=== PATIENT | male | born 1965 | race Caucasian/White ===

== ENCOUNTER 2017-02-25 17:09 | Emergency (ER) | payer OTHER ==
--- NOTE | 2017-02-25 18:02 | EDPHY ---
HPI/HX/ROS/PE/MDM Narrative: CHIEF COMPLAINT: Left inguinal pain HPI: This patient is a 51 year old male with history of chronic back pain complaining of left inguinal pain persistent over the last few months and worsening in the last two weeks. His pain originally felt like his left testicle was being "wrenched". The pain then progressed deeper, inferior to his hip bone. Whenever he moves or shifts side to side, he gets sharp pain that radiates down into his groin and to the outside of his hip. He endorses some associated back pain. 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 He is in physical therapy working with soil checker for back pain related to an L1 fractured. Over the last couple months he has tried to reduce his inguinal pain with is soil checker as well. He has taken 900mg of Ibuprofen today for symptom relief. His primary care physician recommended evaluation in the emergency department for returning or worsening pain. He denies rashes or irritation, dysuria, fever, incontinence, or other associated symptoms. REVIEW OF SYSTEMS: Aside from elements discussed in the HPI, a comprehensive 10-point review of systems was reviewed and is negative. PMH: Fractured L1. Lumbar pain. SOCIAL HISTORY: Performance pianist. . PHYSICAL EXAM: General:Patient is alert, in no acute distress. ENT:Eyes are normal to inspection. ENT inspection normal. Neck: Normal inspection. Full range of motion. Respiratory:No respiratory distress. Breath sounds normal bilaterally. Cardiovascular: Regular rate and rhythm. Strong peripheral pulses. Normal cap refill. Abdomen:The abdomen is nontender to palpation. There are no peritoneal signs. There are normal bowel sounds. Back: Normal to inspection. No tenderness to palpation. Skin: Normal color. No rash. Warm and dry. Extremities: Tenderness left inguinal canal. Normal appearance. Full range of motion. Genitourinary: Neuro: Oriented x3. Normal motor function. Normal sensory function. Portions of this note were transcribed by an ED scribe. I personally performed the history, physical exam, and medical decision making; and confirm the accuracy of the information in the transcribed note. (Ruben Bone) ED Course: Re-evaluation 10:00 p.m.. The patient and I discussed imaging study results, treatment plan including criteria for return and importance of follow-up and further evaluation. He expresses understanding and agreement (Jonn Camargo) Declines pain medication at this time. (Ruben Bone) MDM: This patient presents with severe left inguinal pain. Thankfully, his CTAP is negative for hernia, bowel obstruction, abscess, fracture or other abnormality. Given this negative study, as well as negative labs and urine, I suspect this is either hip bursitis, lumbar radiculopathy or possibly testicular pathology. I have ordered an US of his testicles and signed the patient out to Dr. Camargo. If this is negative, I think the patient is safe to go home with a medrol dose-nicola. He has spine follow-up already in place within 48 hours. ( Ruben Bone) - Data Points Imaging Results: Imaging Impressions Abdomen CT 02/25/17 18:09 Impression: 1. Old L1 compression fracture. 2. Appendectomy. 3. Mild colonic diverticulosis. 4. No acute lesion is identified. I telephoned results to Dr. Ruben Bone at 2031 hours. Testicular Ultrasound 02/25/17 20:44 Impression: Small bilateral hydroceles. I telephoned results to Dr. Jonn Camargo at 2150 hours. Testicular ultrasound reviewed by me and discussed with Dr. Garcia reveals small bilateral hydroceles but otherwise normal testes and epididymis (Jonn Camargo) Laboratory Results: Laboratory Results 02/25/17 18:00 02/25/17 18:00 02/25/17 02/25/17 02/25/17 18:45 18:00 18:00 WBC 6.48 10^3/uL 10^3/uL (3.80-9.50) RBC 5.73 10^6/uL 10^6/uL (4.40-6.38) Hgb 16.7 g/dL g/dL (13.7-17.5) Hct 47.1 % % (40.0-51.0) MCV 82.2 fL fL (81.5-99.8) MCH 29.1 pg pg (27.9-34.1) MCHC 35.5 g/dL g/dL (32.4-36.7) RDW 12.7 % % (11.5-15.2) Plt Count 276 10^3/uL 10^3/uL (150-400) MPV 9.4 fL fL (8.7-11.7) Neut % (Auto) 52.3 % % (39.3-74.2) Lymph % (Auto) 38.6 % % (15.0-45.0) [place] % (Auto) 6.8 % % (4.5-13.0) Eos % (Auto) 1.7 % % (0.6-7.6) Baso % (Auto) 0.3 % % (0.3-1.7) Nucleat RBC Rel Count 0.0 % % (0.0-0.2) Absolute Neuts (auto) 3.39 10^3/uL 10^3/uL (1.70-6.50) Absolute Lymphs (auto) 2.50 10^3/uL 10^3/uL (1.00-3.00) Absolute Monos (auto) 0.44 10^3/uL 10^3/uL (0.30-0.80) Absolute Eos (auto) 0.11 10^3/uL 10^3/uL (0.03-0.40) Absolute Basos (auto) 0.02 10^3/uL 10^3/uL (0.02-0.10) Absolute Nucleated RBC 0.00 10^3/uL 10^3/uL (0-0.01) Immature Gran % 0.3 % % (0.0-1.1) Immature Gran # 0.02 10^3/uL 10^3/uL (0.00-0.10) Sodium 138 mEq/L mEq/L (134-144) Potassium 4.2 mEq/L mEq/L (3.5-5.2) Chloride 104 mEq/L mEq/L (97-110) Carbon Dioxide 19 mEq/l L mEq/l (22-31) Anion Gap 15 mEq/L mEq/L (8-16) BUN 25 mg/dL H mg/dL (7-23) Creatinine 1.0 mg/dL mg/dL (0.7-1.3) Estimated GFR > 60 Glucose 82 mg/dL mg/dL (70-100) Calcium 10.2 mg/dL mg/dL (8.5-10.4) Urine Color YELLOW Urine Appearance HAZY Urine pH 5.0 (5.0-7.5) Ur Specific [place] 1.024 (1.002-1.030) Urine Protein NEGATIVE (NEGATIVE) Urine Ketones NEGATIVE (NEGATIVE) Urine Blood NEGATIVE (NEGATIVE) Urine Nitrate NEGATIVE (NEGATIVE) Urine Bilirubin NEGATIVE (NEGATIVE) Urine Urobilinogen NEGATIVE EU EU (0.2-1.0) Ur Leukocyte Esterase NEGATIVE (NEGATIVE) Urine Glucose NEGATIVE (NEGATIVE) Medications Given: Discontinued Medications Ketorolac Tromethamine (Toradol) 15 mg IVP EDNOW ONE Stop: 02/25/17 20:44 Last Admin: 02/25/17 20:53 Dose: 15 mg General Time Seen by Provider: 02/25/17 17:54 Initial Vital Signs: Initial Vital Signs Temperature (C) 36.8 C 02/25/17 17:15 Heart Rate 53 L 02/25/17 17:15 Respiratory Rate 16 02/25/17 17:15 Blood Pressure 145/93 H 02/25/17 17:15 O2 Sat (%) 98 02/25/17 17:15 O2 Delivery Mode Room Air Allergies/Adverse Reactions: No Known Allergies Allergy (Verified 02/25/17 17:15) Home Medications: Medication Instructions Recorded Aspirin [Aspirin 325 mg] 325 mg PO 08/02/10 Fenofibric Acid (Choline) 45 mg PO 02/25/17 [TRILIPIX] Sildenafil Citrate [Viagra 25 MG 25 mg PO 02/25/17 (*)] methylPREDNISolone [Medrol Dose 1 each PO AD #1 ea 02/25/17 Nicola] oxyCODONE/APAP 5/325 [Percocet 5 - 10 mg PO Q4-6PRN PRN #10 tab 02/25/17 5/325] Departure - Departure Disposition: Home, Routine, Self-Care Clinical Impression: Groin pain Condition: Good Instructions: Oxycodone/Acetaminophen (By mouth), Groin Pain (ED) Additional Instructions: Follow-up with your spine doctor and primary physician as scheduled within one week. Return to the ED for fever, severe pain or other concerns. Referrals: Anita Torrez MD [Primary Care Provider] - As per Instructions Prescriptions: methylPREDNISolone [Medrol Dose Nicola] 1 each PO AD #1 ea oxyCODONE/APAP 5/325 [Percocet 5/325] 5 - 10 mg PO Q4-6PRN PRN #10 tab PRN Reason: For Pain Report Scribed for: Ruben Bone Report Scribed by: Eloisa Knapp Date of Report: 02/25/17 Time of Report: 18:38
[2017-02-25 18:14] LABS: % IMMATURE GRANULYOCYTES 0.3 % (0.0-1.1); ABSOLUTE IMMATURE GRANULOCYTES 0.02 10^3/uL (0.00-0.10); ADD DIFF? NO; ADD MORPH? NO; ADD SCAN? NO; ATYPICAL LYMPHOCYTE FLAG 10 (0-99); FRAGMENT RBC FLAG 0 (0-99); HEMATOCRIT 47.1 % (40.0-51.0); HEMOGLOBIN 16.7 g/dL (13.7-17.5); LEFT SHIFT FLG 0 (0-99); LIPEMIA HEMOLYSIS FLAG 90 (0-99); MEAN CELL HEMOGLOBIN 29.1 pg (27.9-34.1); MEAN CELL HEMOGLOBIN CONCENTR. 35.5 g/dL (32.4-36.7); MEAN CELL VOLUME 82.2 fL (81.5-99.8); MEAN PLATELET VOLUME 9.4 fL (8.7-11.7); PLATELET CLUMPS FLAG 0 (0-99); PLATELET COUNT 276 10^3/uL (150-400); RED BLOOD CELL COUNT 5.73 10^6/uL (4.40-6.38); RED CELL DISTRIBUTION WIDTH 12.7 % (11.5-15.2)
[2017-02-25 18:27] LABS: ANION GAP 15 mEq/L (8-16); CALCIUM 10.2 mg/dL (8.5-10.4); CARBON DIOXIDE 19 mEq/l (22-31); CHLORIDE 104 mEq/L (97-110); GLOMERULAR FILTRATION RATE > 60; GLUCOSE 82 mg/dL (70-100); POTASSIUM 4.2 mEq/L (3.5-5.2); SODIUM 138 mEq/L (134-144)
[2017-02-25] MEDS ORDERED: IOPAMIDOL (ISOVUE-300) 100 ML BTL ONE ×2 (18:36→18:57)
[2017-02-25 18:55] LABS: COLOR YELLOW; LEUKOCYTE ESTERASE,URINE NEGATIVE (NEGATIVE); NITRITE,URINE NEGATIVE (NEGATIVE)
[2017-02-25] MEDS ORDERED: KETOROLAC 30 MG/1 ML SDV IVP ONE (20:43)
[2017-02-25] MEDS ORDERED: OXYCODONE/APAP 5/325MG PREPACK#4 BTL TAKEHOME ONE (22:05)
[2017-02-25 22:41] VITALS: BP 133/85; PULSE 53; RESP 20; TEMP 98.1; O2SAT 95
== END 2017-02-25 22:41 | disposition home or self-care (01) ==
DX: R10.30 Lower abdominal pain, unspecified (principal); Z79.82 Long term (current) use of aspirin
CPT/HCPCS: 96374; J1885; Q9967